=== PATIENT | male | born 1975 | race Hispanic/Latino ===

== ENCOUNTER 2018-11-25 02:01 | Emergency (ER) | payer SELFPAY ==
[2018-11-25] MEDS ORDERED: Ketorolac Tromethamine 60 MG/2 ML VIAL ONE (02:28)
[2018-11-25] MEDS ORDERED: Prochlorperazine 10 MG/2 ML VIAL ONE (02:28)
== END 2018-11-25 02:57 | disposition home or self-care (01) ==
LOC: MADERS 02:01
DX: R11.2 Nausea with vomiting, unspecified (principal); M54.5 Low back pain; F17.210 Nicotine dependence, cigarettes, uncomplicated
CPT/HCPCS: 96372; J0780; J1885

== ENCOUNTER 2018-11-26 23:19 | Emergency (ER) | payer SELFPAY ==
[~2018-11-26 23:19] MED LIST: Iopamidol 370 76% 100 ML VIAL ONE
[2018-11-26] MEDS ORDERED: Sodium Chloride 0.9% 1,000 ML ONE (23:33)
[2018-11-26] MEDS ORDERED: Ondansetron PF 4 MG/2 ML Vial ONE (23:33)
[2018-11-26 23:44] LABS: #Basophils 0.1 thou/uL (0.0-0.2); #Eosinphils 0.2 thou/uL (0.0-0.7); #Lymphocytes 2.2 thou/uL (1.20-3.40); #Monocytes 0.8 thou/uL (0.11-0.59); #Neutrophils 4.6 thou/uL (1.40-6.50); %Basophils 1.1 % (0.0-1.0); %Eosinophils 2.9 % (0.0-10.0); %Lymphocytes 28.2 % (21.0-51.0); %Monocytes 9.8 % (0.0-10.0); Hemoglobin 14.1 g/dL (14.0-18.0); Mean Corpuscular HGB CONC 33.5 g/dL (32.0-36.0); Mean Corpuscular Volume 89.3 fL (78.0-98.0); Mean Platelet Volume 5.2 fL (7.4-10.4); Platelet Count 272 thou/uL (130-400); RBC Distribution Width 11.4 % (11.5-14.5); Red Blood Cell (RBC) Count 4.72 mill/uL (4.70-6.10)
[2018-11-27 00:01] LABS: ALT (SGPT) 58 U/L (8-55); AST (SGOT) 36 U/L (5-34); Albumin 3.9 g/dL (3.5-5.0); Alkaline Phosphatase 73 U/L (40-150); Anion Gap 14 mmol/L (10-20); BUN (Urea Nitrogen) 17 mg/dL (8.9-20.6); Bilirubin, Total 0.2 mg/dL (0.2-1.2); Calc. Creatinine Clearance 0 mL/min (70-130); Calcium 8.9 mg/dL (7.8-10.44); Carbon Dioxide 25 mmol/L (22-29); Chloride 106 mmol/L (98-107); Estimated GFR-MDRD 72; Glucose 116 mg/dL (70-105); Lipase 29 U/L (8-78); Potassium 3.8 mmol/L (3.5-5.1); Protein, Total 6.9 g/dL (6.0-8.3); Sodium 141 mmol/L (136-145)
[2018-11-27] MEDS ORDERED: Morphine 4 MG/ML VIAL ONE (00:28)
[2018-11-27 01:06] LABS: Bilirubin Negative (Negative); Blood, Urine Negative (Negative); Clarity Clear (Clear); Glucose, Urine (Dipstick) Negative (Negative); Leukocyte Negative (Negative); Nitrite Negative (Negative); Protein, Urine (Dipstick) Negative (Neg-Trace); Specific Gravity, Urine 1.015 (1.005-1.030); Urobilinogen 0.2 mg/dL (0.2-1.0)
--- NOTE | 2018-11-27 07:07 | CT ---
CT ABDOMEN AND PELVIS WITH CONTRAST: Date: 11/26/18 No prior comparison. INDICATION: Abdominal pain, low back pain. FINDINGS: There is cholelithiasis. No evidence of urolithiasis or obstructive uropathy. There is mild haziness at the central abdominal mesentery with interspersed lymph nodes which are not pathologically enlarge d. There is no free air. The bowel is incompletely assessed without the presence of enteric contrast. Mild patchy densities of each lung base may be related to volume loss. Abdominal aorta is normal in caliber. IMPRESSION: 1. Cholelithiasis. Gallbladder ultrasound may be obtained as necessary. 2. Incomplete assessment of bowel without enteric contrast administration. 3. Mild haziness of central abdominal mesentery with interspersed lymph nodes. This could relate to mesenteric panniculitis. POS: [facility]
== END 2018-11-27 01:56 | disposition home or self-care (01) ==
LOC: MADERS 23:19
DX: K65.4 Sclerosing mesenteritis (principal); K80.20 Calculus of gallbladder without cholecystitis without obstruction; F17.210 Nicotine dependence, cigarettes, uncomplicated
CPT/HCPCS: 74177; 80053; 81003; 83690; 85025; 96361; 96374; 96375; J2270; J2405; J7050; Q9967